=== PATIENT | female | born 1990 | race African-American/Black ===

== ENCOUNTER 2018-07-24 14:17 | Emergency (ER) | payer SELFPAY ==
[~2018-07-24] VITALS: Ht 162.6 cm; Wt 105.0 kg
[2018-07-24 16:24] LABS: CHLORIDE 104 mEq/L (98-107)
[2018-07-24 16:25] LABS: BASOPHILS % 0.5 % (0.0-2.0); EOSINOPHILS % 2.4 % (0.0-5.0); HEMATOCRIT. 37.1 % (36.0-48.0); HEMOGLOBIN. 12.4 g/dL (12.0-16.0); LYMPHOCYTES % 30.5 % (20.0-50.0); MEAN CORPUSCULAR HEMOGLOBIN 27.1 pg (28.0-32.0); MEAN PLATELET VOLUME 10.5 fl (7.4-10.4); MONOCYTES % 6.1 % (2.0-8.0); NEUTROPHILS % 60.5 % (40.0-76.0); PLATELET 205 x1000/uL (130-400); RED BLOOD CELL COUNT 4.58 mill/uL (4.2-5.4)
[2018-07-24 16:42] LABS: B-HCG QUANTITATIVE 391 mIU/mL (<3)
[2018-07-24 18:30] LABS: CLARITY URINE CLEAR (CLEAR); COLOR URINE YELLOW (YELLOW); KETONES URINE NEGATIVE (NEGATIVE); LEUKOCYTE ESTERASE URINE TRACE (NEGATIVE); NITRITE URINE NEGATIVE (NEGATIVE); OCCULT BLOOD URINE 3+ (NEGATIVE); PH URINE 8.5 (4.5-8.0); PROTEIN URINE 1+ (NEGATIVE); SPECIFIC GRAVITY URINE 1.021 (1.005-1.030); UROBILINOGEN URINE 0.2 E.U./dL (0.2-1.0)
[2018-07-24 18:42] LABS: *AMPHETAMINES SCREEN URINE NEGATIVE (NEGATIVE); *BARBITURATES SCREEN URINE NEGATIVE (NEGATIVE); *BENZODIAZEPINES SCREEN URINE NEGATIVE (NEGATIVE); *COCAINE SCREEN URINE NEGATIVE (NEGATIVE)
[2018-07-24 18:43] LABS: CANNABINOID URINE SCREEN NEGATIVE (NEGATIVE); METHADONE URINE SCREEN NEGATIVE (NEGATIVE); OPIATES URINE SCREEN NEGATIVE (NEGATIVE); PHENCYCLIDINE URINE SCREEN NEGATIVE (NEGATIVE)
[2018-07-24 18:53] VITALS: BP 142/76
== END 2018-07-24 18:56 | disposition home or self-care (01) ==
LOC: ER 14:17
DX: O20.0 Threatened abortion (principal); O23.41 Unspecified infection of urinary tract in pregnancy, first trimester; E86.0 Dehydration; Z3A.01 Less than 8 weeks gestation of pregnancy
CPT/HCPCS: 36415; 76801; 80053; 80305; 81003; 81025; 83036; 84702; 85025; 99285

== ENCOUNTER 2018-11-11 08:51 | Observation (INO) | payer MEDICAID ==
[~2018-11-11] VITALS: Ht 165.1 cm; Wt 113.4 kg
[2018-11-11] MEDS ORDERED: PREN1TAB78 MT (09:59)
[2018-11-11] MEDS ORDERED: FOLI-43 MT (09:59)
[2018-11-11] MEDS ORDERED: CEFD300C3 MT (09:59)
== END 2018-11-11 10:30 | disposition home or self-care (01) ==
LOC: ER 09:10 → 8 EST LDRP 09:15
PROVIDERS: ADMIT Specialist; ATTEND Specialist
DX: O26.892 Other specified pregnancy related conditions, second trimester (principal); M54.5 Low back pain; R10.30 Lower abdominal pain, unspecified; Z3A.20 20 weeks gestation of pregnancy
CPT/HCPCS: 99281; G0378

== ENCOUNTER 2018-11-17 05:24 | Observation (INO) | payer MEDICAID ==
[~2018-11-17] VITALS: Ht 165.1 cm; Wt 113.4 kg
[~2018-11-17 05:24] MED LIST: CEFD300C3 MT; FOLI-43 MT; PREN1TAB78 MT
== END 2018-11-17 07:00 | disposition home or self-care (01) ==
LOC: 8 EST LDRP 05:24
PROVIDERS: ADMIT Obstetrics & Gynecology; ATTEND Obstetrics & Gynecology
DX: O26.892 Other specified pregnancy related conditions, second trimester (principal); R10.30 Lower abdominal pain, unspecified; M54.5 Low back pain; Z3A.21 21 weeks gestation of pregnancy
CPT/HCPCS: G0378 ×2